=== PATIENT | female | born 1960 | race Caucasian/White ===

== ENCOUNTER 2022-09-18 12:58 | Day surgery (SDC) | payer BC ==
[2022-09-13 15:12] LABS: BASOPHILS % (AUTO) 0.5 % (0-1); EOSINOPHILS % (AUTO) 0.2 % (0-6); MEAN CORPUSCULAR HGB CONC 34.3 g/dL (33.0-36.5); MEAN CORPUSCULAR VOLUME 96.5 FL (78-98); MEAN PLATELET VOLUME 7.6 FL (7.4-10.4); MONOCYTES # (AUTO) 0.6 X10'3 (0-0.9); MONOCYTES % (AUTO) 9.5 % (2-12); NEUTROPHILS # (AUTO) 3.8 X10'3 (1.8-7.7); NEUTROPHILS % (AUTO) 58.8 % (42-75); PRE OP HEMATOCRIT 37.6 % (35.0-45.0); PRE OP HEMOGLOBIN 12.9 g/dL (12.0-16.0); PRE OP PLATELET COUNT 284 X10'3 (140-440); RED CELL DISTRIBUTION WIDTH 13.2 % (11.5-14.5)
[2022-09-13 15:24] LABS: ALBUMIN 3.5 G/DL (3.4-5.0); ALBUMIN/GLOBULIN RATIO 0.9 (1.1-1.5); ALKALINE PHOSPHATASE 39 IU/L (46-116); BLOOD UREA NITROGEN 17 MG/DL (7-18); BUN/CREATININE RATIO 21.3 (10.0-20.0); CALCIUM 9.1 MG/DL (8.5-10.1); CHLORIDE 105 MMOL/L (99-107); PRE OP ALT 27 U/L (30-65); PRE OP ANION GAP 8 (8-16); PRE OP AST 13 U/L (10-37); PRE OP BILIRUB, TOTAL 0.2 MG/DL (0.0-1.0); PRE OP GLUCOSE 96 MG/DL (70-104); PRE OP POTASSIUM 3.9 MMOL/L (3.4-5.1); PRE OP SODIUM 138 MMOL/L (135-145); TOTAL PROTEIN 7.2 G/DL (6.4-8.2); eGFR 73 ML/MIN
[2022-09-18] VITALS (12 sets, daily range): BP systolic 113–149; BP diastolic 66–81; PULSE 63–77; RESP 11–17; TEMP 98.1; O2SAT 98–100
[~2022-09-18] VITALS: Ht 170.2 cm; Wt 68.0 kg
[~2022-09-18 12:58] MED LIST: CHOL100025 PO; ESTR1TAB28 PO; IMMU4VIA SQ; LACT1CAP65 PO; MULT-1085 PO; PRAS25CA PO; PROG200C11 PO; TESTOSTERONE CREAM TOP; THYR90TA12 PO; TUMERIC PO; VITA-365; cefazolin 2gm/D5W 100mL 100 ML IV ONE; famotidine 20mg tablet PO ONE; ringers solution, lacted 1,000 ML IV SCH
[2022-09-18] MEDS ORDERED: fentaNYL/PF 50MCG/1 ML 2ML syringe ONE (15:19)
[2022-09-18] MEDS ORDERED: midazolam 1 mg/ML 2ml injection ONE (15:20)
[2022-09-18] MEDS ORDERED: propofol inj 20 ML IV ONE (15:20)
[2022-09-18] MEDS ORDERED: LIDOcaine 2% (20mg/ml) 5ml vial ONE (15:20)
[2022-09-18] MEDS ORDERED: sevoflurane 250ml liquid IH ONE (15:43)
[2022-09-18] MEDS ORDERED: dexamethasone sod phosphate 10mg/ml inj ONE (15:43)
[2022-09-18] MEDS ORDERED: LIDOcaine 1% (10mg/ml)w/preservative inj. 20ml MDV ONE (15:45)
[2022-09-18] MEDS ORDERED: BUPIVAcaine/PF 2.5 mg/ml (0.25%) 30ml vial ONE (15:45)
[2022-09-18] MEDS ORDERED: ringers solution, lacted 1,000 ML IV SCH (15:50)
[2022-09-18] MEDS ORDERED: proCHLORperazine 10 MG/2 ml inj IV PRN (15:50)
[2022-09-18] MEDS ORDERED: ondansetron/PF 4mg/2ml inj IV PRN (15:50)
[2022-09-18] MEDS ORDERED: meperidine/PF 25mg/ml syringe IV PRN ×3 (15:50)
[2022-09-18] MEDS ORDERED: LIDOcaine 1% 30ml preserv. free vial IJ ONE (16:00)
[2022-09-18] MEDS ORDERED: BUPIVAcaine/PF 2.5 mg/ml (0.25%) 30ml vial IJ ONE (16:00)
[2022-09-18] MEDS ORDERED: ondansetron/PF 4mg/2ml inj ONE (16:08)
[2022-09-18] MEDS ORDERED: acetaminophen 1,000mg/100ml IV 100 ML IV ONE (16:10)
--- NOTE | 2022-09-18 16:58 | NUR ---
[facility] from [facility] via [employer] [facility], accompanied by Anesthesiologist DR MARTINEZ and report given by Anesthesiolgist. PT PRESENTS WITH PIV 20G RIGHT HAND, LAP SITE CDI, SPO2 100% 6L MASK, LR RUNNING AT 100MLS/HR, VSS. Addendum: 09/18/22 at 1714 by Yolette Kitchen RN, RN Amended: Links added.
[2022-09-18] MEDS ORDERED: oxyCODONE/APAP 5-325mg tablet PO PRN (17:10)
--- NOTE | 2022-09-18 18:48 | NUR ---
ABLE TO SAFELY AMBULATE AND TRANSFER SELF. IV TAKEN OUT WITHOUT ANY COMPLICATIONS. ALL DISCHARGE INSTRUCTIONS COVERED WITH PATIENT AND ALL QUESTIONS ANSWERED. PATIENT TAKEN OUT VIA WHEELCHAIR TO PERSONAL VEHICLE WHERE FAMILY/FRIEND DROVE PATIENT HOME. Addendum: 09/18/22 at 1851 by Yolette Kitchen RN, RN Amended: Links added.
== END 2022-09-18 18:48 | disposition home or self-care (01) ==
LOC: PAS 12:58
PROVIDERS: ATTEND Surgery
DX: K43.6 Other and unspecified ventral hernia with obstruction, without gangrene (principal); E03.9 Hypothyroidism, unspecified; D80.3 Selective deficiency of immunoglobulin G [IgG] subclasses; Z72.89 Other problems related to lifestyle; Z79.899 Other long term (current) drug therapy; Z90.710 Acquired absence of both cervix and uterus; Z98.890 Other specified postprocedural states; Z88.5 Allergy status to narcotic agent; Z88.8 Allergy status to other drugs, medicaments and biological substances; Z85.42 Personal history of malignant neoplasm of other parts of uterus
CPT/HCPCS: 36415; 49592; 80053; 82948; 85025; 93005; C1781; J0131; J0690; J1100; J2250; J2405; J2704; J3010; J3490; J7030; J7120; Z7506; Z7508; Z7512; A4215; A4618; A7000